=== PATIENT | male | born 1975 | race Caucasian/White ===

== ENCOUNTER 2019-11-05 00:45 | Emergency (ER) | payer BC ==
[~2019-11-05] VITALS: Ht 182.9 cm; Wt 117.9 kg
[2019-11-05 00:50] VITALS: BP_SYST 160
--- NOTE | 2019-11-05 00:55 | NUR ---
Patient to ER bed 5 to gown for evaluation. Side rails up. Report given to Austyn JACOBS.
--- NOTE | 2019-11-05 01:05 | NUR ---
SECURITY AT THE BEDSIDE TO KATY PEREIRA.
--- NOTE | 2019-11-05 01:10 | NUR ---
Pt BIBA w/ statements of wanting to kill himself. Pt is alert, but confused. Pt refusing to answer questions. Unccoperative w/ assessment. Pt has Hx of schizophrenia noted. Will continue to monitor.
--- NOTE | 2019-11-05 01:14 | NUR ---
Dr. Tabares at bedside examining Pt.
[2019-11-05 01:55] LABS: BASOPHILS # (AUTO) 0.1 K/uL (0.0-0.2); BASOPHILS % (AUTO) 0.7 % (0.0-2.0); EOSINOPHILS # (AUTO) 0.4 K/uL (0.0-0.4); HEMATOCRIT 37.9 % (36-54); HEMOGLOBIN 12.5 g/dL (14.0-18.0); LYMPHOCYTES # (AUTO) 1.7 K/uL (1.0-5.5); LYMPHOCYTES % (AUTO) 18.9 % (20.5-51.5); MEAN CORPUSCULAR HEMOGLOBIN 29 pg (27-31); MEAN CORPUSCULAR HGB CONC 33 % (32-36); MEAN CORPUSCULAR VOLUME 86 fL (79.0-98.0); MONOCYTES # (AUTO) 0.5 K/uL (0.0-1.0); MONOCYTES % (AUTO) 5.9 % (1.7-9.3); NEUTROPHILS # (AUTO) 6.2 K/uL (1.8-7.7); NEUTROPHILS % (AUTO) 69.5 % (40.0-70.0); PLATELET COUNT (AUTO) 131 K/uL (130-430); RED BLOOD CELL COUNT(AUTO) 4.38 MIL/uL (4.2-6.2); RED CELL DISTRIBUTION WIDTH 15.6 % (9.0-15.0)
[2019-11-05 02:03] LABS: ANION GAP 7 (5-15); CALCIUM 8.1 mg/dL (8.4-11.0); CHLORIDE 103 mmol/L (98-107); CREATININE 0.75 mg/dL (0.55-1.30); GLUCOSE 123 mg/dL (70-99); POTASSIUM 3.4 mmol/L (3.5-5.1); SODIUM SERUM 137 mmol/L (136-145); UREA NITROGEN, BLOOD 13 mg/dL (8-21)
[2019-11-05 02:10] LABS: ALANINE AMINOTRANSFERASE 21 U/L (12-78); ALBUMIN 3.1 g/dL (3.4-4.8); ASPARTATE AMINOTRANSFERASE 20 U/L (10-37); TOTAL BILIRUBIN 0.2 mg/dL (0.0-1.0)
[2019-11-05 02:11] LABS: ACETAMINOPHEN < 1 ug/mL (1-30); ALCOHOL, BLOOD < 3 mg/dL (<10); GFR AFRICAN AMERICAN 144 mL/min (>90)
--- NOTE | 2019-11-05 02:12 | NUR ---
Request for Telepsych. Awaiting time is approximated up to 2HRs. Will continue to monitor. Pt in bed asleep. No s/s of distress noted.
--- NOTE | 2019-11-05 02:50 | NUR ---
Dr. Moody spoke to Pt via Tele[facility]. Evaluation done. Pt able to answer questions asked. Reccomendations noted, will report to ER MD. Pt in bed, stable, able to make needs known.
[2019-11-05] MEDS ORDERED: OLANZapine 5 MG TABLET PO ONE (03:00)
[2019-11-05 03:17] LABS: BILIRUBIN,URINE NEGATIVE (NEGATIVE); BLOOD, URINE NEGATIVE (NEGATIVE); CLARITY/URINE SL CLOUDY (CLEAR); COLOR,URINE YELLOW (YELLOW); GLUCOSE,URINE NEGATIVE (NEGATIVE); KETONES,URINE NEGATIVE (NEGATIVE); LEUKOCYTE ESTERASE ,URINE NEGATIVE (NEGATIVE); NITRITE, URINE NEGATIVE (NEGATIVE); PROTEIN URINE 1+ (NEGATIVE); UROBILINOGEN,URINE 0.2 (0.2-1.0)
[2019-11-05 03:22] LABS: BACTERIA,URINE FEW /HPF (None Seen); RBC,URINE 0-3 /HPF (0-3); WBC,URINE 0-3 /HPF (0-3)
[2019-11-05 03:26] LABS: BARBITURATE, URINE NEGATIVE (NEG <=200); BENZODIAZEPINE, URINE NEGATIVE (NEG <=150); CANNABINOID, URINE NEGATIVE (NEG <=50); COCAINE, URINE NEGATIVE (NEG <=150); METHAMPHETAMINES SCREEN,URINE NEGATIVE (NEG <=500); OPIATE, URINE NEGATIVE (NEG <=100); PHENCYCLIDINE SCREEN,URINE NEGATIVE (NEG <=25); UR TRICYCLIC ANTIDEPRESSANTS NEGATIVE (NEG <=300); URINE AMPHETAMINE NEGATIVE (NEG <=500); URINE METHADONE NEGATIVE (NEG <=200); URINE OXYCODONE SCREEN NEGATIVE (NEG <=100); URINE PROPOXYPHENE SCREEN NEGATIVE (NEG <=300)
--- NOTE | 2019-11-05 03:30 | NUR ---
Pt in bed asleep. No s/s of distress noted. Pt given sandwhich to eat. Will continue to monitor.
[2019-11-05] MEDS ORDERED: OLANZapine 5 MG TABLET ONE (03:47)
[2019-11-05] MEDS ORDERED: OLANZapine 10 MG TABLET ONE (03:47)
--- NOTE | 2019-11-05 05:30 | NUR ---
Pt in bed continuining to sleep. No s/s of distress noted. Requested another blanket. Will continue to monitor.
--- NOTE | 2019-11-05 06:34 | NUR ---
2nd request made through Tele[facility] for Dr. Jane, for follow up on psych evaluation.
--- NOTE | 2019-11-05 07:02 | NUR ---
Spoke w/ Govind from [facility] regarding pyschiatrist follow up report. Made aware of situation, and report will be faxed over now. 2nd request for Tele[facility] has been cancelled.
--- NOTE | 2019-11-05 07:05 | NUR ---
Report received from [facility]. to read.
--- NOTE | 2019-11-05 07:08 | NUR ---
Report given to oncoming RN at bedside via [facility] approach.
--- NOTE | 2019-11-05 07:13 | NUR ---
Received report from Austyn
--- NOTE | 2019-11-05 07:35 | NUR ---
Pt given homeless packet and meal, asked about transport needs.
[2019-11-05 07:52] VITALS: BP_SYST 136
--- NOTE | 2019-11-05 07:52 | NUR ---
Patient given written and verbal discharge instructions and verbalizes understanding. ER MD discussed with patient the results and treatment provided. Patient in stable condition. ID arm band removed. Rx of zyprexa given. Patient educated on pain management and to follow up with PMD. Pain Scale 0/10. Opportunity for questions provided and answered. Medication side effect fact sheet provided.
--- NOTE | 2019-11-05 08:01 | NUR ---
Transportation arranged by house sup. Pt was provided w/ a meal and home less packet. Pt has adequate clothing.
== END 2019-11-05 07:52 | disposition home or self-care (01) ==
LOC: SED 00:45
DX: R45.851 Suicidal ideations (principal); F20.9 Schizophrenia, unspecified; F17.290 Nicotine dependence, other tobacco product, uncomplicated
CPT/HCPCS: 36415; 80053; 80307; 81000; 85025; 99284; G0480; G0482